=== PATIENT | male | born 1980 | race Caucasian/White ===

== ENCOUNTER 2018-07-21 22:46 | Emergency (ER) | payer MEDICAID ==
[~2018-07-21] VITALS: Ht 167.6 cm; Wt 81.6 kg
[2018-07-21 23:07] VITALS: BP 139/108
--- NOTE | 2018-07-21 23:14 | NUR ---
PT TAKEN TO BED 7
--- NOTE | 2018-07-21 23:30 | NUR ---
PT BIB C/O LEG PAIN. PT PRESENTS TO ER W/ WARM, CLOSED WOUNDS TO BL LOWER EXTREMETIES, NO DISCHARGE NOTED. PAIN 8/10 TO BL CALF AND MEJIA, NON RADIATING. PT STATES WOUNDS START SMALL AROUND HAIR FOLLICULES AND THEN GET BIGGER AND TURN INTO BIGGER WOUNDS. PT ACTING APPROPRIATLY, SPEAKING IN CLEAR AND COMPLETE SENTENCES. PMH: DENIES Addendum: 07/22/18 at 0117 by [email or web address] PT BIB C/O LEG PAIN. PT PRESENTS TO ER W/ WARM, CLOSED WOUNDS TO BL LOWER EXTREMETIES, NO DISCHARGE NOTED. PAIN 8/10 TO BL CALF AND MEJIA, NON RADIATING. PT STATES WOUNDS START SMALL AROUND HAIR FOLLICULES AND THEN GET BIGGER AND TURN INTO BIGGER WOUNDS. CAP REFIL <2; SENSITIVE TO TOUCH, AROM OF EXREMITIES; SKIN WARM, DRY W/ MILD REDNESS AROUND WOUNDS. PT ACTING APPROPRIATLY, SPEAKING IN CLEAR AND COMPLETE SENTENCES. PMH: DENIES
--- NOTE | 2018-07-22 00:51 | NUR ---
Dr. Deleon evaluating patient at bedside.
[2018-07-22 01:27] VITALS: BP 139/108
--- NOTE | 2018-07-22 01:27 | NUR ---
Patient discharged with v/s stable. Written and verbal after care instructions given and explained. Patient alert, oriented and verbalized understanding of instructions. Ambulatory with steady gait. All questions addressed prior to discharge. ID band removed. Patient advised to follow up with PMD. Rx of bactrim, keflex, prednisone, motrin was given. Patient educated on indication of medication including possible reaction and side effects. Opportunity to ask questions provided and answered.
== END 2018-07-22 01:27 | disposition home or self-care (01) ==
LOC: MED 22:46
DX: L03.115 Cellulitis of right lower limb (principal); L03.116 Cellulitis of left lower limb
CPT/HCPCS: 99283

== ENCOUNTER 2018-12-20 20:22 | Emergency (ER) | payer MEDICAID ==
[~2018-12-20] VITALS: Ht 165.1 cm; Wt 113.4 kg
[2018-12-20 20:22] VITALS: BP 147/86
--- NOTE | 2018-12-20 20:23 | NUR ---
PT AMBULATED TO CHAIR B.
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
[2018-12-20 21:32] VITALS: BP 139/81
--- NOTE | 2018-12-20 21:32 | NUR ---
Patient discharged with v/s stable. Written and verbal after care instructions given and explained. Patient alert, oriented and verbalized understanding of instructions. Ambulatory with Yuri Rowe in custody. All questions addressed prior to discharge. ID band removed. Patient advised to follow up with PMD. Rx of BACTRIM, KEFLEX, MOTRIN, PREDNISONE given. Patient educated on indication of medication including possible reaction and side effects. Opportunity to ask questions provided and answered.
== END 2018-12-20 21:32 | disposition home or self-care (01) ==
LOC: MED 20:22
DX: L03.116 Cellulitis of left lower limb (principal); L03.115 Cellulitis of right lower limb; Z98.890 Other specified postprocedural states; V49.49XA Driver injured in collision with other motor vehicles in traffic accident, initial encounter; W22.10XA Striking against or struck by unspecified automobile airbag, initial encounter; Y93.89 Activity, other specified; Y92.488 Other paved roadways as the place of occurrence of the external cause; Y99.8 Other external cause status
CPT/HCPCS: 99283

== ENCOUNTER 2019-04-04 12:38 | Emergency (ER) | payer SELFPAY ==
[~2019-04-04] VITALS: Ht 160 cm; Wt 99.8 kg
[2019-04-04 12:50] VITALS: BP 149/93
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
[2019-04-04] MEDS ORDERED: KETOROLAC 30 MG/ML VIAL IVP ONE (13:20)
[2019-04-04] MEDS ORDERED: NITROGLYCERIN 2% 1 GM PKT TP ONE (13:20)
[2019-04-04] MEDS ORDERED: ASPIRIN 81 MG TAB.CHEW PO ONE (13:20)
[2019-04-04] MEDS ORDERED: NACL 0.9% 1,000 ML IV ONE (13:20)
--- NOTE | 2019-04-04 13:26 | NUR ---
ASPIRIN PO ADMINISTERED AND NITRO APPLIED TO CHEST
--- NOTE | 2019-04-04 13:39 | NUR ---
TORADOL ADMINISTERED AND FLUIDS STARTED
--- NOTE | 2019-04-04 13:40 | NUR ---
XRAY AT BEDSIDE
[2019-04-04 14:05] LABS: BASOPHILS % (AUTO) 0.7 % (0.0-2.0); EOSINOPHILS # (AUTO) 0.1 K/uL (0-0.4); EOSINOPHILS % (AUTO) 1.7 % (0.0-4.0); HEMOGLOBIN 14.1 g/dL (12.0-18.0); LYMPHOCYTES # (AUTO) 1.4 K/uL (2.0-11.5); LYMPHOCYTES % (AUTO) 33.2 % (20.5-51.1); MEAN CORPUSCULAR HEMOGLOBIN 28 pg (27-31); MEAN CORPUSCULAR HGB CONC 33 g/dL (33-37); MEAN CORPUSCULAR VOLUME 84.2 fL (80-94); MONOCYTES # (AUTO) 0.4 K/uL (0.8-1.0); MONOCYTES % (AUTO) 10.5 % (1.7-9.3); NEUTROPHILS # (AUTO) 2.2 K/uL (1.8-7.7); NEUTROPHILS % (AUTO) 53.9 % (42.2-75.2); PLATELET COUNT (AUTO) 211 K/uL (140-450); RED BLOOD CELL COUNT(AUTO) 5.11 MIL/uL (4.20-6.10); RED CELL DISTRIBUTION WIDTH 14.8 % (11.6-13.7); WHITE BLOOD COUNT (AUTO) 4.1 K/uL (4.8-10.8)
[2019-04-04 14:25] LABS: ALBUMIN 3.8 g/dL (3.4-5.0); ANION GAP 12.4 (8-16); CARBON DIOXIDE 28.2 mmol/L (21-32); CREATININE 0.7 mg/dL (0.6-1.3); POTASSIUM 3.6 mmol/L (3.5-5.1); TOTAL BILIRUBIN 0.3 mg/dL (0.0-1.0)
[2019-04-04 14:44] LABS: PROTHROMBIN TIME 10.3 secs (10.8-13.4)
[2019-04-04 17:46] VITALS: BP 121/77
--- NOTE | 2019-04-05 12:21 | NUR ---
Late entry. Confirmed with RN that 0.9 NS IV completed at [id number]
== END 2019-04-04 17:46 | disposition home or self-care (01) ==
LOC: MED 12:38
DX: R07.89 Other chest pain (principal); R00.2 Palpitations; R61 Generalized hyperhidrosis; F17.210 Nicotine dependence, cigarettes, uncomplicated
CPT/HCPCS: 36415; 71045; 80053; 81002; 84484; 85025; 85610; 85730; 93005; 96374; 99284; J1885; J7030; Q0092